=== PATIENT | male | born 1945 | race Caucasian/White ===

== ENCOUNTER 2017-07-21 20:40 | Inpatient (IN) | payer OTHER ==
--- NOTE | 2017-07-21 20:48 | EDPHY ---
H & P Stated Complaint: +SOB HPI/ROS: HPI CHIEF COMPLAINT: Shortness of breath HISTORY OF PRESENT ILLNESS: Patient is a 72-year-old male, significant past medical history for decompensated heart failure, he does report to me that he injection fraction of 20% at 1 point, additionally has a history AFib, he current not take any daily medications. He ripped port me that he stopped taking his Coreg, Lasix, lisinopril as he did not like the side effects. He states after stopping the he felt well for 3 months but then over the past few weeks she has had progressively worsening shortness of breath with dyspnea on exertion, PND, and tachycardia. He denies any chest pain. He comes to the emergency room tonight as he has been feeling more short of breath day and woke up numerous times last night with PND. He could not go to sleep he kept waking up gasping for air. He denies any chest pain or fever. Denies productive cough. Past Medical History: Significant medical history for AFib, CHF Past Surgical History: No recent surgical history Social History: Denies daily use drugs alcohol tobacco products retired. Family History: Noncontributory ROS REVIEW OF SYSTEMS: A comprehensive 10 point review of systems is otherwise negative aside from elements mentioned in the history of present illness. Exam Constitutional appears nontoxic triage nursing summary reviewed, vital signs reviewed, awake/alert. Noted be tachycardic at triage Eyes normal conjunctivae and sclera, EOMI, PERRLA. HENT normal inspection, atraumatic, moist mucus membranes, no epistaxis, neck supple/ no meningismus, no raccoon eyes. Respiratory crackles bilaterally. Cardiovascular tachycardia, regular rhythm, no murmur, no edema, distal pulses normal. Gastrointestinal soft, non-tender, no rebound, no guarding, normal bowel sounds, no distension, no pulsatile mass. Genitourinary no CVA tenderness. Musculoskeletal no midline vertebral tenderness, full range of motion, no calf swelling, no tenderness of extremities, no meningismus, good pulses, neurovascularly intact. Skin pink, warm, & dry, no rash, skin atraumatic. Neurologic awake, alert and oriented x 3, AAOx3, moves all 4 extremities equally, motor intact, sensory intact, CN II-XII intact, normal cerebellar, normal vision, normal speech. Psychiatric normal mood/affect. Heme/Lymph/Immune no lymphadenopathy. Differential Diagnosis: Includes but is not limited to in a particular order decompensated heart failure, pneumonia, CHF, pleurisy, pneumothorax, PE Medical Decision Making: Plan for this patient will workup for decompensated heart failure. Hold IV fluids, full surveillance system monitor, chest x-ray, electrolytes , troponin, CHF, EKG Re-evaluation: EKG interpretation by me on record in [employer] system. Impression time of EKG 2106, sinus tachycardia rate of 110 LVH present. I do not appreciate acute ischemia. Q-waves noted in inferior leads to 3 AVF. ED x-ray chest one-view: This shows cardiomegaly with bilateral pulmonary edema. Significant for decompensated heart failure. 2139: Ordered this patient IV Lasix. 40 mg. Source: Patient, Family - Personal History Current Tetanus/Diphtheria Vaccine: Unsure Current Tetanus Diphtheria and Acellular Pertussis (TDAP): Unsure - Medical/Surgical History Hx Asthma: No Hx Chronic Respiratory Disease: No Hx Diabetes: No Hx Cardiac Disease: Yes Hx Renal Disease: No Hx Cirrhosis: No Hx Alcoholism: No Hx HIV/AIDS: No Hx Splenectomy or Spleen Trauma: No Other PMH: A-FIB WITH SPONTANEOUS CONVERSION, aDVANCED CHF - Social History Smoking Status: Never smoked Constitutional: Initial Vital Signs Temperature (C) 36.4 C 07/21/17 20:42 Heart Rate 116 H 07/21/17 20:42 Respiratory Rate 20 07/21/17 20:42 Blood Pressure 133/92 H 07/21/17 20:42 O2 Sat (%) 93 07/21/17 20:42 O2 Delivery Mode Room Air Allergies/Adverse Reactions: No Known Allergies Allergy (Unverified 02/24/16 11:17) Home Medications: Medication Instructions Recorded Carvedilol [Coreg (*)] 25 mg PO BIDMEAL 02/24/16 Lisinopril [Zestril 5 mg (*)] 5 mg PO DAILY 02/24/16 Furosemide [Lasix 20 MG (*)] 20 mg PO Q3D 07/21/17 Medical Decision Making - Data Points Laboratory Results: Laboratory Results 07/21/17 21:20 07/21/17 21:20 Medications Given: Digoxin (Lanoxin) 125 mcg PO DAILY10 [facility] Stop: 01/19/18 09:59 Last Admin: 07/23/17 10:05 Dose: 125 mcg Heparin Sodium (Porcine) (Heparin Sc Injection) 5,000 unit SC Q8 [facility] Stop: 01/18/18 05:59 Last Admin: 07/23/17 21:45 Dose: 5,000 unit Temazepam (Restoril) 15 mg PO HS PRN PRN Reason: Sleep/Insomnia Stop: 01/19/18 09:19 Last Admin: 07/23/17 21:45 Dose: 15 mg Discontinued Medications Carvedilol (Coreg) 3.125 mg PO BIDMEAL [facility] Stop: 01/18/18 07:59 Last Admin: 07/22/17 11:14 Dose: 3.125 mg Furosemide (Lasix Injection) 40 mg IVP [facility] Stop: 07/21/17 21:41 Last Admin: 07/21/17 21:46 Dose: 40 mg Furosemide (Lasix) 40 mg PO DAILY [facility] Stop: 01/18/18 08:59 Last Admin: 07/22/17 10:47 Dose: Not Given Lisinopril (Zestril) 2.5 mg PO DAILY [facility] Stop: 01/18/18 08:59 Last Admin: 07/22/17 10:47 Dose: Not Given Metoprolol Succinate (Toprol Xl) 12.5 mg PO HS [facility] Stop: 01/18/18 20:59 Last Admin: 07/22/17 21:03 Dose: Not Given Sacubitril/Valsartan (Entresto 24 Mg/26 Mg) 1 ea PO BID [facility] Stop: 01/18/18 10:14 Last Admin: 07/23/17 08:29 Dose: Not Given Departure - Departure Disposition: [facility] Acute Clinical Impression: Acute decompensated heart failure Condition: Fair
--- NOTE | 2017-07-21 21:09 | CPEKG ---
Heart Rate: 110 RR Interval: 545 P-R Interval: 148 QRSD Interval: 100 QT Interval: 356 QTC Interval: 482 P Watkins: 56 QRS Watkins: -59 T Wave Watkins: 81 EKG Severity - ABNORMAL ECG - EKG Impression: SINUS TACHYCARDIA EKG Impression: PROBABLE LEFT ATRIAL ABNORMALITY EKG Impression: LEFT ANTERIOR FASCICULAR BLOCK EKG Impression: LVH WITH SECONDARY REPOLARIZATION ABNORMALITY EKG Impression: BORDERLINE PROLONGED QT INTERVAL Electronically Signed By: Romain Jackson 21-Jul-2017 22:19:23
[2017-07-21 21:29] LABS: PLATELET COUNT 213 10^3/uL (150-400)
[2017-07-21] MEDS ORDERED: FUROSEMIDE 40 MG/4 ML VIAL IVP ONE (21:40)
[2017-07-21 21:41] LABS: PROTIME(PATIENT) 13.4 SEC (12.0-15.0)
[2017-07-21] MEDS ORDERED: ACETAMINOPHEN 325 MG TAB PO PRN (22:12)
[2017-07-21] MEDS ORDERED: ONDANSETRON 4 MG/2 ML VIAL IVP PRN (22:12)
[2017-07-21] MEDS ORDERED: ONDANSETRON DISINTEGRATING 4 MG TAB PO PRN (22:12)
[2017-07-21 22:15] LABS: CREATINE KINASE 77 IU/L (0-224)
--- NOTE | 2017-07-21 23:36 | PDGENHP ---
History and Physical - Chief Complaint SHELTON - History of Present Illness 72 yo M w/ systolic heart failure presents with dyspnea on exertion and PND. Patient was first diagnosed with heart failure about 2 years ago following a viral illness. He has never had ischemic heart disease. He reports his last ejection fraction was 28% on a TTE performed in April of 2017. He was previously on Lasix (alternating 20 and 40 mg qOD), Lisinopril 5 mg qD, and Coreg 25 mg BID. He is followed by Dr. Prieto. He states that he had been feeling unwell due to the medication so he stopped taking all of it about 3 months ago. Over the last 6 weeks he was developed progressive SHELTON and PND. He had experienced minimal weight gain and has no lower extremity edema. He denies chest pain or any recent illness. History Information - Allergies/Home Medication List Allergies/Adverse Reactions: No Known Allergies Allergy (Unverified 02/24/16 11:17) Home Medications: Carvedilol [Coreg (*)] 25 mg PO BIDMEAL 02/24/16 [Last Taken 3 Months Ago ~04/21] Lisinopril [Zestril 5 mg (*)] 5 mg PO DAILY 02/24/16 [Last Taken 3 Months Ago ~ 04/21/17] Furosemide [Lasix 20 MG (*)] 20 mg PO Q3D 07/21/17 [Last Taken 2 Weeks Ago ~03/16] I have personally reviewed and updated: family history, medical history - Past Medical History CHF - Surgical History Reports: no pertinent surgical hx - Family History Positive for: CAD - Social History Smoking Status: Never smoked Review of Systems Review of Systems: ROS: 10pt was reviewed & negative except for what was stated in HPI & below Physical Exam Physical Exam: Temp Pulse Resp BP Pulse Ox 36.5 C 105 H 19 116/83 H 97 07/21/17 23:22 07/21/17 23:22 07/21/17 23:22 07/21/17 23:22 07/21/17 23:22 Constitutional: no apparent distress, not in pain Eyes: PERRL, EOMI Ears, Nose, Mouth, Throat: moist mucous membranes, no oral mucosal ulcers Cardiovascular: regular rate and rhythym, no murmur, rub, or gallop, JVD (2 cm above clavicle at 45 degress), No edema Respiratory: no respiratory distress, inspiratory crackles (Bilateral to mid- lungs) Gastrointestinal: normoactive bowel sounds, soft, non-tender abdomen Skin: warm, normal color Musculoskeletal: full muscle strength, no muscle tenderness Neurologic: AAOx3, CN II-XII Intact Psychiatric: interacting appropriately, not anxious Lab Data & Imaging Review 07/21/17 21:20 07/21/17 21:20 WBC 5.77 10^3/uL (3.80-9.50) 07/21/17 21:20 RBC 5.09 10^6/uL (4.40-6.38) 07/21/17 21:20 Hgb 15.6 g/dL (13.7-17.5) 07/21/17 21:20 Hct 45.5 % (40.0-51.0) 07/21/17 21:20 MCV 89.4 fL (81.5-99.8) 07/21/17 21:20 MCH 30.6 pg (27.9-34.1) 07/21/17 21:20 MCHC 34.3 g/dL (32.4-36.7) 07/21/17 21:20 RDW 14.3 % (11.5-15.2) 07/21/17 21:20 Plt Count 213 10^3/uL (150-400) 07/21/17 21:20 MPV 10.9 fL (8.7-11.7) 07/21/17 21:20 Neut % (Auto) 58.2 % (39.3-74.2) 07/21/17 21:20 Lymph % (Auto) 23.6 % (15.0-45.0) 07/21/17 21:20 Tompkins % (Auto) 11.4 % (4.5-13.0) 07/21/17 21:20 Eos % (Auto) 5.2 % (0.6-7.6) 07/21/17 21:20 Baso % (Auto) 1.4 % (0.3-1.7) 07/21/17 21:20 Nucleat RBC Rel Count 0.0 % (0.0-0.2) 07/21/17 21:20 Absolute Neuts (auto) 3.36 10^3/uL (1.70-6.50) 07/21/17 21:20 Absolute Lymphs (auto) 1.36 10^3/uL (1.00-3.00) 07/21/17 21:20 Absolute Monos (auto) 0.66 10^3/uL (0.30-0.80) 07/21/17 21:20 Absolute Eos (auto) 0.30 10^3/uL (0.03-0.40) 07/21/17 21:20 Absolute Basos (auto) 0.08 10^3/uL (0.02-0.10) 07/21/17 21:20 Absolute Nucleated RBC 0.00 10^3/uL (0-0.01) 07/21/17 21:20 Immature Gran % 0.2 % (0.0-1.1) 07/21/17 21:20 Immature Gran # 0.01 10^3/uL (0.00-0.10) 07/21/17 21:20 PT 13.4 SEC (12.0-15.0) 07/21/17 21:20 INR 1.00 (0.83-1.16) 07/21/17 21:20 APTT 23.9 SEC (23.0-38.0) 07/21/17 21:20 Sodium 145 mEq/L (134-144) H 07/21/17 21:20 Potassium 4.6 mEq/L (3.5-5.2) 07/21/17 21:20 Chloride 112 mEq/L (97-110) H 07/21/17 21:20 Carbon Dioxide 19 mEq/l (22-31) L 07/21/17 21:20 Anion Gap 14 mEq/L (8-16) 07/21/17 21:20 BUN 26 mg/dL (7-23) H 07/21/17 21:20 Creatinine 1.1 mg/dL (0.7-1.3) 07/21/17 21:20 Estimated GFR > 60 07/21/17 21:20 Glucose 97 mg/dL (70-100) 07/21/17 21:20 Calcium 9.8 mg/dL (8.5-10.4) 07/21/17 21:20 Magnesium 2.1 mg/dL (1.6-2.3) 07/21/17 21:20 Total Bilirubin 0.7 mg/dL (0.1-1.4) 07/21/17 21:20 Conjugated Bilirubin 0.4 mg/dL (0.0-0.5) 07/21/17 21:20 Unconjugated Bilirubin 0.3 mg/dL (0.0-1.1) 07/21/17 21:20 AST 60 IU/L (17-59) H 07/21/17 21:20 ALT 137 IU/L (21-72) H 07/21/17 21:20 Alkaline Phosphatase 128 IU/L (38-126) H 07/21/17 21:20 Creatine Kinase 77 IU/L (0-224) 07/21/17 21:20 CK-MB (CK-2) Fraction 2.36 ng/mL (0.00-3.19) 07/21/17 21:20 Troponin I 0.022 ng/mL (0.000-0.034) 07/21/17 21:20 NT-Pro-B Natriuret Pep 7560 pg/mL (0-125) H 07/21/17 21:20 Total Protein 6.8 g/dL (6.3-8.2) 07/21/17 21:20 Albumin 4.1 g/dL (3.5-5.0) 07/21/17 21:20 Visualized and Interpreted Chest x-ray results: Yes Chest X-Ray results: other (Vascular congestion, mild pulmonary edema) Visualized and Interpreted EKG results: Yes EKG Interpretation: Positive for: other (Sinus tachyardia, LAFB) Assessment & Plan Assessment: 72 yo M w/ hx of systolic CHF 2/2 NICM presents with subacute decompensation in the setting of medication noncompliance. Plan: 1. Chronic systolic heart failure with acute decompensation - NICM 2/2 likely viral illness 2 years ago. He reports his last ejection fraction was 28% on a TTE performed in April of 2017. He was previously on Lasix (alternating 20 and 40 mg qOD), Lisinopril 5 mg qD, and Coreg 25 mg BID but stopped all medications about 3 months ago. He is followed by Dr. Prieto. As a result he developed progressive SHELTON and PND over the last few weeks. Work-up this admission notable for elevated BNP and pulmonary edema with minimal signs of right sided dysfunction. He denies chest pain or recent illness; troponin negative on admission. - S/p Lasix 40 mg IV x1 in ED with good output - Will restart Lasix 40 mg PO qD - Will also restart Coreg 3.125 mg BID and Lisinopril 2.5 mg qD for now noting 3 months without medications and ongoing exacerbation - Obtain TTE - Will consult cardiology for further management Diet - Cardiac Code - Full Ppx - [facility] Dispo - Admit to inpatient status noting need for monitoring and medication titration.
--- NOTE | 2017-07-22 00:22 | PDMN ---
Medical Necessity Medical necessity: C/M review: est. > 2 MN LOS for acute decompensated systolic heart failure, dyspnea on exertion, PND requiring IV Lasix x 1 in ED, planned Cardiology consult, echocardiogram, cardiac monitoring, medication titration, comorbid medication noncompliance, chronic systolic heart failure, nonischemic cardiomyopathy per H/P.
[2017-07-22 04:32] LABS: PLATELET COUNT 216 10^3/uL (150-400)
[2017-07-22] MEDS: HEPARIN 5,000 UNIT/0.5 ML SYR SC SCH ×3 (06:53→22:28)
[2017-07-22] MEDS ORDERED: CARVEDILOL 3.125 MG TAB PO SCH (08:00)
[2017-07-22] MEDS ORDERED: FUROSEMIDE 40 MG TAB PO SCH (09:00)
[2017-07-22] MEDS ORDERED: LISINOPRIL 2.5 MG TAB PO SCH (09:00)
[2017-07-22] MEDS ORDERED: FUROSEMIDE 40 MG/4 ML VIAL IVP SCH (09:00)
--- NOTE | 2017-07-22 11:19 | HOSPPROG ---
Hospitalist Progress Note Assessment/Plan: 72 yo M w/ hx of systolic CHF 2/2 NICM presents with subacute decompensation in the setting of medication noncompliance. 1. Chronic systolic heart failure with acute decompensation - NICM 2/2 likely viral illness 2 years ago. He reports his last ejection fraction was 28% on a TTE performed in April of 2017. He was previously on Lasix (alternating 20 and 40 mg qOD), Lisinopril 5 mg qD, and Coreg 25 mg BID but stopped all medications about 3 months ago. He is followed by Dr. Prieto. As a result he developed progressive SHELTON and PND over the last few weeks. Work-up this admission notable for elevated BNP and pulmonary edema with minimal signs of right sided dysfunction. He denies chest pain or recent illness; troponin negative on admission. - Entresto per Cards - Diuretics per cards, holding currently as Entresto just started - Coreg 3.125mg PO BID - Stopped Lisinopril - F/u TTE 2. Transaminitis: - resolved - negative abd ultrasound - not symptomatic Diet - Cardiac Code - Full Ppx - [facility] Dispo - cont inpatient Subjective: Still feels SOB. Started on Entresto this morning. TTE pending. No CP. No leg swelling. Does not want an EVA-I. Objective: Vital Signs Temp Pulse Resp BP Pulse Ox 36.9 C 103 H 16 105/78 96 07/22/17 11:07 07/22/17 11:14 07/22/17 11:07 07/22/17 11:07 07/22/17 11:07 Laboratory Results 07/22/17 03:45 07/22/17 03:45 07/21/17 07/22/17 07/23/17 05:59 05:59 05:59 Intake Total 400 Output Total 1200 Balance -800 PT 13.4 SEC (12.0-15.0) 07/21/17 21:20 INR 1.00 (0.83-1.16) 07/21/17 21:20 - Physical Exam Constitutional: no apparent distress, appears nourished Eyes: PERRL, EOMI Ears, Nose, Mouth, Throat: moist mucous membranes, hearing normal Cardiovascular: regular rate and rhythym, edema (trace) Respiratory: no respiratory distress, inspiratory crackles Gastrointestinal: normoactive bowel sounds, soft, non-tender abdomen Genitourinary: no bladder fullness Skin: warm, normal color Neurologic: AAOx3 Psychiatric: interacting appropriately, not anxious, not encephalopathic Lymph, Heme, Immunologic: No petechiae ICD10 Worksheet Patient Problems: Problems Problem Status Onset Acute decompensated heart failure Acute
[2017-07-22] MEDS: SACUBITRIL/VALSARTAN 24/26MG 1 EA TAB PO SCH ×2 (11:21→21:03)
--- NOTE | 2017-07-22 11:44 | ECHO ---
[email or web address] [address] [address] Main: [phone] Fax: Transthoracic Echocardiogram Name: ZULEMA TOLEDO MR#: [id number] Study Date: 07/22/2017 Study Time: 09:46 AM Date of : 1945 Age: 72 year(s) Height: 188 cm (74 in.) Weight: 65.77 kg (145 lb.) BSA: 1.9 m2 Gender: Male Examination: Echo Indication: CHF exacerbation Image Quality: Adequate Contrast: Requested by: Claudio Clemons BP: 130 mmHg/99 mmHg Heart Rate: Rhythm: Sinus tachycardia Indication: CHF exacerbation Procedure Staff [employer] Assembler: Letty Wyatt Reading Physician: Abner Lorenzo Requesting Provider: Conclusions: Moderately to severely dilated left ventricle. Severely reduced systolic LV function. EF is 16 %. Grade 2 diastolic dysfunction (pseudonormalized LV filling pattern). Elevated left ventricular filling pressures.. Global hypokinesis. Mildly reduced RV function. The left atrium is mildly dilated. The right atrium is moderately dilated. Moderate mitral valve regurgitation is present. Moderate tricuspid regurgitation is present. The pulmonary artery pressure is moderately increased. RAP 15 mmHg. No pericardial effusion. Left side pleural effusion. Measurements: Chambers Valvular Assessment AV/MV Valvular Assessment TV/PV Normal Normal Normal Name Value Range Name Value Range Name Value Range Ao Summer (MM): 3.5 cm (2.2 cm-3.7 AV Vmax: 0.61 m/s (1 m/s-1.7 TR Vmax: 3.18 mm/s ( - ) cm) m/s) TR PGmax: 40 mmHg ( - ) IVSd (2D): 0.9 cm (0.6 cm-1.1 AV maxP mmHg ( - ) syst. PAP: 50 mmHg ( - ) cm) MV E Vmax: 0.69 m/s ( - ) PV Vmax: 0.68 m/s (0.6 m/s-0.9 LVDd (2D): 6.7 cm (4.2 cm-5.9 MV A Vmax: 0.30 m/s ( - ) m/s) cm) MV E/A: 2.30 ( - ) PV PGmax: 2 mmHg ( - ) LVDs (2D): 6.3 cm (2.1 cm-4 MV meanP mmHg ( - ) cm) MVA (Vmax): 3.3 m/s ( - ) LVPWd (2D): 0.9 cm (0.6 cm-1 cm) Patient: ZULEMA TOLEDO Study Date: 07/22/2017 Page 1 of 2 09:46 AM LVOTd 2.2 cm 2.2 cm mm LVEF (BP): 16 % (>=55 %) Continued Measurements: Chambers Valvular Assessment AV/MV Valvular Assessment TV/PV Name Value Name Value Name Value LADs Lon.2 cm MV Annulus: 3.3 cm CVP (est.): 10 mmHg LA Area: 21.8 cm2 MV DecTime: 116 m/s LA Volume: 66 ml MV VTI: 8.30 cm LA Volume Index: 34.7 ml/m2 MR Vena Contracta: 0.5 cm MR ERO: 0.270 cm2 MR PISA radius: 7 mm MR Reg. Volume: 31 ml MR Reg. Fraction: 44 % Findings: Left Ventricle: Moderately to severely dilated left ventricle. No LV hypertrophy. Severely reduced systolic LV function. EF is 16 %. Grade 2 diastolic dysfunction (pseudonormalized LV filling pattern). Elevated left ventricular filling pressures.. Global hypokinesis. Right Ventricle: Normal size right ventricle. Mildly reduced RV function. Left Atrium: The left atrium is mildly dilated. Right Atrium: The right atrium is moderately dilated. Mitral Valve: There is mild thickening of the mitral valve leaflets. Moderate mitral valve regurgitation is present. No mitral stenosis is present. Aortic Valve: There is mild thickening of the aortic cusps. Trivial to mild aortic valve regurgitation. No aortic valve stenosis is present. Tricuspid Valve: The tricuspid valve appears normal. Moderate tricuspid regurgitation is present. Right ventricular systolic pressure measures 50mmHg. The pulmonary artery pressure is moderately increased. Pulmonic Valve: The pulmonic valve is normal in appearance and function. Moderate pulmonic valve regurgitation is noted. Aorta: Normal size aortic root measuring 3.5 cm. IVC: The IVC is dilated. There is less than 50% respiratory excursion. RAP 15 mmHg. Pericardium: No pericardial effusion. Left side pleural effusion. (No Signature Object) Patient: ZULEMA TOLEDO Study Date: 07/22/2017 Page 2 of 2 09:46 AM [id number]
--- NOTE | 2017-07-22 11:44 | ASMTCMCOM ---
CM Note CM Note Notes: Pt admitted w/decompensated heart failure. He lives at home w/. No dc needs identified at this time. Discussed w/RN, Amanda, that pt will benefit from medication teaching prior to dc. CM available if any dc needs arise. Date Signed: 07/22/2017 11:44 AM Electronically Signed By:Karen Win RN
--- NOTE | 2017-07-22 12:48 | SOAPPROG ---
SOAP Progress Note Assessment/Plan: Assessment: He presents now with symptoms of dyspnea and PND associated with a slight nonproductive cough on the heels of discontinuing his medications. He has a known severe nonischemic dilated cardiomyopathy. His brain atretic peptide is markedly elevated and certainly much higher than he has had in the past. His exam is consistent with mild pulmonary edema. At the present time, the most likely etiology for his decompensation is medical noncompliance. There does not appear to be another cause. He and I spent a significant portion of the visit discussing the importance of his medications. I recommended that we get him started back on guideline directed medical therapy. He will start Entresto at the introductory dose. I will also begin him on a very low-dose of Toprol-XL which I would like him to take before bed. At least during the day today we will plan on holding off on any additional diuretic therapy until we can see his response to above change in his medications. Perhaps later today we will give him a dose of intravenous Lasix. He has basic labs scheduled for tomorrow. I anticipate a be in hospital for a couple of days while we adjust his med occasions and assess his volume status. Certainly is a candidate for and should strongly be considered for an ICD. 07/22/17 12:49 Subjective: Mr. Alvarado is a pleasant 72-year-old male followed as an outpatient by Dr. Augustin Prieto. 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 Serial echocardiography in our office has Josefa Manzanares indicated an ejection fraction in the 20-30% range with moderate left ventricular dilatation and mild aortic and mitral regurgitation. Historically, he has been treated with a combination of lisinopril, Lasix and Coreg. Typically he has been well compensated. Historically he has had some difficulty taking his medications as prescribed. He has declined ICD therapy in the past. He states that about 3 months ago he decided to stop all of his medications. He did this because he was experiencing side effects of orthostasis, fatigue and decreased mental clarity. Off of his medications he initially felt better with an improvement in his energy level however over the last 2-3 weeks he started to feel worse. He has developed symptoms of dyspnea associated with PND without prince orthopnea. Interestingly, he has not had any weight gain and denies at lower extremity edema. He has had a slight cough when he tries to take a deep breath. Because of these symptoms he came to the emergency department and was admitted overnight. He received intravenous Lasix last night. Today he states he feels a little bit better. He has not had any chest discomfort. He notes no sputum production. He denies fever, chills and sweats. He notes no palpitations and denies episodes of dizziness or syncope. Objective: Vital Signs Temp Pulse Resp BP Pulse Ox 36.9 C 103 H 16 105/78 96 07/22/17 11:07 07/22/17 11:14 07/22/17 11:07 07/22/17 11:07 07/22/17 11:07 Laboratory Results 07/22/17 03:45 07/22/17 03:45 07/21/17 07/22/17 07/23/17 05:59 05:59 05:59 Intake Total 400 Output Total 1200 Balance -800 PT 13.4 SEC (12.0-15.0) 07/21/17 21:20 INR 1.00 (0.83-1.16) 07/21/17 21:20 Laboratory Tests 07/21/17 07/22/17 21:20 03:45 ALT 137 H 127 H Alkaline Phosphatase 128 H 115 Troponin I 0.022 NT-Pro-B Natriuret Pep 7560 H Physical Exam - Physical Exam General Appearance: thin Neck: non-tender, full range of motion Respiratory: chest non-tender, crackles (At the bases), No respiratory distress , No accessory muscle use Cardiac/Chest: regular rate, rhythm, gallop (Loud 3rd heart sound), JVD (To the mid neck at 30 degrees), systolic murmur (1/6 holosystolic murmur left sternal border), No edema Peripheral Pulses: 1+: carotid (R), carotid (L) Abdomen: non-tender, soft, No organomegaly, No pulsatile mass Male Genitalia: deferred Rectal: deferred Skin: normal color, warm/dry, No cyanosis Lymphatic: No no adenopathy Extremities: non-tender Neuro/Psych: alert, normal mood/affect, oriented x 3 ICD10 Worksheet Patient Problems: Problems Problem Status Onset Acute decompensated heart failure Acute
[2017-07-22] MEDS ORDERED: METOPROLOL SUCCINATE XR 25 MG TAB PO SCH (21:00)
[2017-07-23] MEDS: HEPARIN 5,000 UNIT/0.5 ML SYR SC SCH ×3 (07:08→21:45)
[2017-07-23] MEDS: SACUBITRIL/VALSARTAN 24/26MG 1 EA TAB PO SCH (08:29)
[2017-07-23] MEDS ORDERED: TEMAZEPAM 15 MG CAP PO PRN (09:20)
[2017-07-23] MEDS ORDERED: DIGOXIN 50 MCG/ML UDSYR PO SCH (10:00)
[2017-07-23] MEDS: DIGOXIN 125 MCG TAB PO SCH (10:05)
--- NOTE | 2017-07-23 10:19 | HOSPPROG ---
Hospitalist Progress Note Assessment/Plan: 72 yo M w/ hx of systolic CHF 2/2 NICM presents with subacute decompensation in the setting of medication noncompliance. 1. Chronic systolic heart failure with acute decompensation - NICM 2/2 likely viral illness 2 years ago. He reports his last ejection fraction was 28% on a TTE performed in April of 2017. He was previously on Lasix (alternating 20 and 40 mg qOD), Lisinopril 5 mg qD, and Coreg 25 mg BID but stopped all medications about 3 months ago. He is followed by Dr. Prieto. As a result he developed progressive SHELTON and PND over the last few weeks. Work-up this admission notable for elevated BNP and pulmonary edema with minimal signs of right sided dysfunction. He denies chest pain or recent illness; troponin negative on admission. - Entresto per Cards: He has developed hypotension and this is currently being held - Diuretics per cards, holding currently as Entresto just started - Metoprolol per cards, holding currently due to hypotension - Stopped Lisinopril 2. Transaminitis: - resolved - negative abd ultrasound - not symptomatic 3. Hypotension: likely due to Entresto Diet - Cardiac Code - Full Ppx - SQH Dispo - cont inpatient Plan: -hold meds untils seen by Cards -If BP holds, could benefit from diuresis -PT: ill order today -monitor overnigh -plan discussed with pt, Cardiology, and nurse Subjective: Breathing gaines feels better. BP is low. No CP, no palpitations. Meds held this morning Objective: Vital Signs Temp Pulse Resp BP Pulse Ox 36.6 C 87 14 89/56 L 96 07/23/17 08:00 07/23/17 10:05 07/23/17 08:00 07/23/17 08:00 07/23/17 08:00 Laboratory Results 07/22/17 03:45 07/23/17 04:35 07/22/17 07/23/17 07/24/17 05:59 05:59 05:59 Intake Total 400 750 Output Total 1200 586 Balance -800 164 PT 13.4 SEC (12.0-15.0) 07/21/17 21:20 INR 1.00 (0.83-1.16) 07/21/17 21:20 - Physical Exam Constitutional: no apparent distress Eyes: PERRL Ears, Nose, Mouth, Throat: moist mucous membranes, hearing normal Cardiovascular: regular rate and rhythym, No edema Respiratory: no respiratory distress, inspiratory crackles Gastrointestinal: normoactive bowel sounds, soft, non-tender abdomen Skin: warm Neurologic: AAOx3 Psychiatric: interacting appropriately, not anxious, not encephalopathic Lymph, Heme, Immunologic: No petechiae ICD10 Worksheet Patient Problems: Problems Problem Status Onset Acute decompensated heart failure Acute
--- NOTE | 2017-07-23 10:32 | SOAPPROG ---
SOAP Progress Note Assessment/Plan: Assessment: He presents now with symptoms of dyspnea and PND associated with a slight nonproductive cough on the heels of discontinuing his medications. He has a known severe nonischemic dilated cardiomyopathy. His brain atretic peptide is markedly elevated and certainly much higher than he has had in the past. His exam is consistent with mild pulmonary edema. At the present time, the most likely etiology for his decompensation is medical noncompliance. There does not appear to be another cause. He and I spent a significant portion of the visit discussing the importance of his medications. I recommended that we get him started back on guideline directed medical therapy. He will start Entresto at the introductory dose. I will also begin him on a very low-dose of Toprol-XL which I would like him to take before bed. At least during the day today we will plan on holding off on any additional diuretic therapy until we can see his response to above change in his medications. Perhaps later today we will give him a dose of intravenous Lasix. He has basic labs scheduled for tomorrow. I anticipate a be in hospital for a couple of days while we adjust his med occasions and assess his volume status. Certainly is a candidate for and should strongly be considered for an ICD. 07/22/17 12:49 Unfortunately was not able to tolerate the a Entresto. As result this medication was discontinued. Additionally, he did not receive Toprol last night. Today he appears to be well compensated although continues to be manifesting hypotension. At this point I do not think that we will reinstitute Entresto. I would like to give him a period of time for this medication to wash out. I started him on digoxin 0.125 mg today. I will give him any additional diuretics or vasodilators. I will plan to reassess him in the morning. If he is doing well at that time, we can start a low-dose of Toprol. At that point I think he can be discharged and have further up titration of his medications as an outpatient. His overall prognosis is extremely poor at this point. He may be approaching a point where we need to consider referral to a center where he might be considered for more advanced heart failure treatments such as a destination ventricular assist device or consideration of cardiac transplant. Additionally, we discussed ICD therapy. He appears to be open to this option. That discussion can be continued as an outpatient with his primary woven label designer Dr. Mustafa. 07/23/17 10:29 Subjective: He received a dose of Entresto yesterday. Unfortunately, following the dose of Entresto he did developed transient hypotension. Blood pressures were in the 70s. Despite this, he feels well today. He currently is not experiencing symptoms of dyspnea. He continues to have insomnia without prince PND. He appears to be very anxious regarding his cardiac condition. Objective: Vital Signs Temp Pulse Resp BP Pulse Ox 36.6 C 87 14 89/56 L 96 07/23/17 08:00 07/23/17 10:05 07/23/17 08:00 07/23/17 08:00 07/23/17 08:00 Laboratory Results 07/22/17 03:45 07/23/17 04:35 07/22/17 07/23/17 07/24/17 05:59 05:59 05:59 Intake Total 400 750 Output Total 1200 586 Balance -800 164 PT 13.4 SEC (12.0-15.0) 07/21/17 21:20 INR 1.00 (0.83-1.16) 07/21/17 21:20 Physical Exam - Physical Exam General Appearance: no apparent distress, thin Neck: non-tender, full range of motion Respiratory: lungs clear, normal breath sounds, No respiratory distress, No accessory muscle use, No decreased breath sounds Cardiac/Chest: regular rate, rhythm, gallop (+S3) Peripheral Pulses: 2+: carotid (R), carotid (L) Abdomen: normal bowel sounds, non-tender Male Genitalia: deferred Rectal: deferred Neuro/Psych: alert, oriented x 3 ICD10 Worksheet Patient Problems: Problems Problem Status Onset Acute decompensated heart failure Acute
[2017-07-24] MEDS: HEPARIN 5,000 UNIT/0.5 ML SYR SC SCH ×3 (06:58→21:35)
--- NOTE | 2017-07-24 09:18 | SOAPPROG ---
SOAP Progress Note Assessment/Plan: Assessment: 1. Nonischemic dilated cardiomyopathy. 2. Not history of noncompliance. Procedures during this hospitalization: Echocardiogram 07/22/2017. Reviewed personally. Impression: Day 2. Status post admission for decompensated heart failure secondary to noncompliance. He is improving slowly. Continues to have orthopnea at night. Continues with dry cough. Examination continues to show decreased breath sounds at the bases with rales. Continue low-dose beta-brianna. Gentle diuresis. Discussed at length need for ICD. 07/24/17 09:15 Subjective: Overnight continues to have significant orthopnea. Continues to have significant weakness. Occasional episodes of dizziness. Denies chest pain, syncope, near syncope. No palpitations. Discussed at length with his need for medications and possible need for ICD. He has goals of longevity. Objective: Medications Generic Name Dose Route Start Last Admin Trade Name Freq PRN Reason Stop Dose Admin Digoxin 125 mcg 07/23/17 10:00 07/23/17 10:05 Lanoxin PO 01/19/18 09:59 125 mcg DAILY10 [facility] Vital Signs Temp Pulse Resp BP Pulse Ox 36.6 C 92 14 102/62 94 07/24/17 08:00 07/24/17 08:00 07/24/17 08:00 07/24/17 08:00 07/24/17 08:00 Laboratory Results 07/22/17 03:45 07/24/17 03:21 07/23/17 07/24/17 07/25/17 05:59 05:59 05:59 Intake Total 750 790 Output Total 586 200 Balance 164 590 PT 13.4 SEC (12.0-15.0) 07/21/17 21:20 INR 1.00 (0.83-1.16) 07/21/17 21:20 Physical Exam - Physical Exam General Appearance: alert, no apparent distress EENT: PERRL/EOMI Neck: non-tender Respiratory: decreased breath sounds, rales Cardiac/Chest: normal peripheral pulses, regular rate, rhythm, gallop, JVD Abdomen: normal bowel sounds, non-tender, soft Back: Normal inspection Skin: normal color, warm/dry Lymphatic: no adenopathy Extremities: normal range of motion, No pedal edema, No calf tenderness Neuro/Psych: no motor/sensory deficits, alert, No facial droop ICD10 Worksheet Patient Problems: Problems Problem Status Onset Acute decompensated heart failure Acute Past Medical History - Personal History Current Tetanus/Diphtheria Vaccine: Unsure Current Tetanus Diphtheria and Acellular Pertussis (TDAP): Unsure - Medical/Surgical History Hx Asthma: No Hx Chronic Respiratory Disease: No Hx Cardiac Disease: Yes Hx Diabetes: No Hx Renal Disease: No Hx Alcoholism: No Hx Cirrhosis: No Hx HIV/AIDS: No Hx Splenectomy or Spleen Trauma: No Other PMH: A-FIB WITH SPONTANEOUS CONVERSION, aDVANCED CHF - Social History Smoking Status: Never smoked Review of Systems - Review of Systems Constitutional: weakness, weight loss. denies: chills, fever EENTM: no symptoms reported Respiratory: cough, orthopnea, shortness of breath. denies: stridor, wheezing Cardiac: lightheadedness. denies: chest pain, irregular heart rate, palpitations Gastrointestinal/Abdominal: no symptoms reported Genitourinary: no symptoms Musculoskelatal: no symptoms Skin: no symptoms Neurological: no symptoms, anxiety Hematologic/Lymphatic: no symptoms reported Immunologic/allergic: no symptoms reported
[2017-07-24] MEDS: DIGOXIN 125 MCG TAB PO SCH (09:40)
[2017-07-24] MEDS: FUROSEMIDE 20 MG TAB PO SCH (14:59)
[2017-07-24] MEDS: CARVEDILOL 3.125 MG TAB PO SCH (17:47)
--- NOTE | 2017-07-24 19:14 | HOSPPROG ---
Hospitalist Progress Note Assessment/Plan: -systolic CHF, acute -intolerence of entresto with hypotension -passive hepatic congestion -chronic kidney disease -agree with discontinue of entresto -agree with ongoing gentle diuresis, though he does not appear to have a lot more fluid to remove -discussed sleeping with extra pillows still with dyspnea and orthopnea, the orthopnea a bit better but more persistant daytime dyspnea no cough or fever or CP Lab data: creat stable, bun stable at 30 Objective: Vital Signs Temp Pulse Resp BP Pulse Ox 36.6 C 93 15 108/70 92 07/24/17 16:00 07/24/17 17:47 07/24/17 16:00 07/24/17 17:47 07/24/17 16:00 Laboratory Results 07/22/17 03:45 07/24/17 03:21 07/23/17 07/24/17 07/25/17 06:59 06:59 06:59 Intake Total 142 578 2841 Output Total 586 200 845 Balance 164 590 925 PT 13.4 SEC (12.0-15.0) 07/21/17 21:20 INR 1.00 (0.83-1.16) 07/21/17 21:20 ICD10 Worksheet Patient Problems: Problems Problem Status Onset Acute decompensated heart failure Acute
[2017-07-25] MEDS: HEPARIN 5,000 UNIT/0.5 ML SYR SC SCH ×3 (06:12→21:47)
[2017-07-25] MEDS: CARVEDILOL 3.125 MG TAB PO SCH ×2 (09:03→18:20)
[2017-07-25] MEDS: DIGOXIN 125 MCG TAB PO SCH (09:03)
[2017-07-25] MEDS ORDERED: FUROSEMIDE 40 MG/4 ML VIAL IVP ONE (09:35)
--- NOTE | 2017-07-25 09:44 | SOAPPROG ---
SOAP Progress Note Assessment/Plan: Assessment: He presents now with symptoms of dyspnea and PND associated with a slight nonproductive cough on the heels of discontinuing his medications. He has a known severe nonischemic dilated cardiomyopathy. His brain atretic peptide is markedly elevated and certainly much higher than he has had in the past. His exam is consistent with mild pulmonary edema. At the present time, the most likely etiology for his decompensation is medical noncompliance. There does not appear to be another cause. He and I spent a significant portion of the visit discussing the importance of his medications. I recommended that we get him started back on guideline directed medical therapy. He will start Entresto at the introductory dose. I will also begin him on a very low-dose of Toprol-XL which I would like him to take before bed. At least during the day today we will plan on holding off on any additional diuretic therapy until we can see his response to above change in his medications. Perhaps later today we will give him a dose of intravenous Lasix. He has basic labs scheduled for tomorrow. I anticipate a be in hospital for a couple of days while we adjust his med occasions and assess his volume status. Certainly is a candidate for and should strongly be considered for an ICD. 07/22/17 12:49 Unfortunately was not able to tolerate the a Entresto. As result this medication was discontinued. Additionally, he did not receive Toprol last night. Today he appears to be well compensated although continues to be manifesting hypotension. At this point I do not think that we will reinstitute Entresto. I would like to give him a period of time for this medication to wash out. I started him on digoxin 0.125 mg today. I will give him any additional diuretics or vasodilators. I will plan to reassess him in the morning. If he is doing well at that time, we can start a low-dose of Toprol. At that point I think he can be discharged and have further up titration of his medications as an outpatient. His overall prognosis is extremely poor at this point. He may be approaching a point where we need to consider referral to a center where he might be considered for more advanced heart failure treatments such as a destination ventricular assist device or consideration of cardiac transplant. Additionally, we discussed ICD therapy. He appears to be open to this option. That discussion can be continued as an outpatient with his primary dinkey engine operator Dr. Mustafa. 07/23/17 10:29 His overall clinical status is improved. He continues to have nocturnal dyspnea which may be a component of orthopnea or possibly anxiety. His fluid balance has been positive for the last several days ago associated with weight gain. By examination he has slight rales and decreased breath sounds both bases. He continues to experience episodes of PVCs and nonsustained VT on telemetry. Several discussions have been had with him by myself and Dr. Arenas regarding utility of ICD implantation. At the present time he is amenable to this procedure. I spoke to the hospitalist Dr. Marie regarding the case as well. A chest x-ray and brain atretic peptide a been ordered. I have given him 40 mg of IV Lasix. I have also started him on a low-dose of Aldactone. We will plan to follow his electrolytes closely. We will schedule him for ICD implantation prior to discharge from the hospital. His other medications will be continued. 07/25/17 09:41 Subjective: He states he is feeling better today. He has very minimal exertional dyspnea. He does, however, continued to experience symptoms of orthopnea. He has had positive fluid balance noted on eyes and nose for the last several days. On telemetry he has been in sinus rhythm with occasional episodes of ventricular ectopy and short salvos of nonsustained VT. Objective: Vital Signs Temp Pulse Resp BP Pulse Ox 37.5 C 101 H 18 99/66 L 94 07/25/17 08:00 07/25/17 08:00 07/25/17 08:00 07/25/17 08:00 07/25/17 08:00 Laboratory Results 07/22/17 03:45 07/25/17 03:35 07/24/17 07/25/17 07/26/17 05:59 05:59 05:59 Intake Total 790 2170 Output Total 200 1445 Balance 590 725 PT 13.4 SEC (12.0-15.0) 07/21/17 21:20 INR 1.00 (0.83-1.16) 07/21/17 21:20 Physical Exam - Physical Exam General Appearance: thin Neck: non-tender, full range of motion Respiratory: decreased breath sounds (At the bases), crackles (At the base) Cardiac/Chest: regular rate, rhythm, gallop (Positive S3), No edema, No JVD Peripheral Pulses: 1+: carotid (R), carotid (L) Abdomen: non-tender, soft, No organomegaly Male Genitalia: deferred Rectal: deferred Neuro/Psych: alert, oriented x 3 ICD10 Worksheet Patient Problems: Problems Problem Status Onset Acute decompensated heart failure Acute
[2017-07-25] MEDS: SPIRONOLACTONE 25 MG TAB PO SCH (10:07)
--- NOTE | 2017-07-25 10:31 | HOSPPROG ---
Hospitalist Progress Note Assessment/Plan: DIAGNOSES: -systolic CHF, acute -intolerence of entresto with hypotension -passive hepatic congestion -chronic kidney disease -? Anxiety disorder Overall the patient's progress is hard to read. Symptomatic we he still complains of a lot of orthopnea and difficulty breathing at night, although it sounds like there may be a significant anxiety component to this. He is actually feeling better with his breathing sitting in a chair today than yesterday. He seems to notice urine output with Lasix, however looking at the last 4 days he has gained weight each day and had a positive fluid balance measured by the nurses. Total weight gain is significant over the last few days , and this would be a very concerning trend if it continued at home. It does not appear as if the current diuretic dose is likely to be sufficient if our goal is to hold his weight is steady and keep him from coming back for more hospitalization. It is notable however that his BNP did drop significantly from the time of admission to the most recent check a couple days ago. That may be left over from the initial IV Lasix he got in the ER, and I would wonder if that number is creeping back up. We still have difficulty with lower blood pressures even on a dramatically lower dose of Coreg and off the entresto. I reviewed all this today with Dr. Barrientos. I agree that at this point we are probably approaching and may be arrived at the point where some mechanical assistance for his heart failure is going to become necessary in order to keep him safe with good blood pressure and keep him out of the hospital from a respiratory and edema standpoint. It may be that some type of anti anxiety or similar therapy may be useful for his nocturnal symptoms, but we would have to contend with potential side effects of such treatment as well. I wonder if an antidepressant medication may be of some benefit if this is a persisting symptom. PLANS: -agree with staying off entresto -will get a repeat BNP and chest x-ray this morning in order to further assess fluid balance and progress treating his heart failure -I reviewed his situation, and assessment and plans in detail this morning with Dr. Barrientos and will review with him again after we have the BNP and chest x-ray SUBJECTIVE: still with dyspnea and orthopnea, was bad last night Actually today stat CT is coughing more, no chest pain or fever, no URI symptoms otherwise OBJECTIVE Vitals reviewed: Lowest systolic blood pressure 94 this morning currently 106, pulse has been up over 100 on occasion, no fever House Registry Rn, my review: Sinus I&O: He had some initial diuresis with a large dose of IV Lasix in the ER, however since then each day he has gained weight and had a positive fluid balance and appears to be up nearly 4 kg during his stay Exam: alert oriented skin warm dry color ok resps not labored at rest in chair now lungs very diminished but clear BSs, would be hard to hear any rales if they were there heart regular abd soft nondistended nontender, bowel sounds present limbs warm, no edema iv site ok Laboratory data: BUN down slightly at 28 creatinine stable chemistries otherwise stable Objective: Vital Signs Temp Pulse Resp BP Pulse Ox 37.5 C 101 H 18 99/66 L 94 07/25/17 08:00 07/25/17 08:00 07/25/17 08:00 07/25/17 08:00 07/25/17 08:00 Laboratory Results 07/22/17 03:45 07/25/17 03:35 07/24/17 07/25/17 07/26/17 06:59 06:59 06:59 Intake Total 790 2170 240 Output Total 200 1445 460 Balance 590 725 -220 PT 13.4 SEC (12.0-15.0) 07/21/17 21:20 INR 1.00 (0.83-1.16) 07/21/17 21:20 - Time Spent With Patient Time Spent with Patient: greater than 35 minutes Time Spent with Patient: Greater than 35 minutes spent on this patients care, greater than 50% of time spent counseling, educating, and coordinating care regarding the above mentioned plan. ICD10 Worksheet Patient Problems: Problems Problem Status Onset Acute decompensated heart failure Acute
[2017-07-25] MEDS: FUROSEMIDE 20 MG TAB PO SCH ×2 (12:07→16:06)
--- NOTE | 2017-07-25 13:43 | ASMTCMCOM ---
CM Note CM Note Notes: Chart reviewed. Patient independent with ADLS. No needs identified, CM availble should needs change. Date Signed: 07/25/2017 01:43 PM Electronically Signed By:Sena Angeles RN
[2017-07-25 23:34] VITALS: O2SAT 98
[2017-07-26] MEDS: HEPARIN 5,000 UNIT/0.5 ML SYR SC SCH (05:52)
[2017-07-26 08:23] VITALS: RESP 17; TEMP 97.5
[2017-07-26] MEDS ORDERED: FUROSEMIDE 20 MG TAB PO SCH (08:39)
[2017-07-26] MEDS: SPIRONOLACTONE 25 MG TAB PO SCH (09:18)
[2017-07-26] MEDS: CARVEDILOL 3.125 MG TAB PO SCH (09:18)
[2017-07-26 09:21] VITALS: PULSE 91
--- NOTE | 2017-07-26 10:59 | SOAPPROG ---
SOAP Progress Note Assessment/Plan: Assessment: He presents now with symptoms of dyspnea and PND associated with a slight nonproductive cough on the heels of discontinuing his medications. He has a known severe nonischemic dilated cardiomyopathy. His brain atretic peptide is markedly elevated and certainly much higher than he has had in the past. His exam is consistent with mild pulmonary edema. At the present time, the most likely etiology for his decompensation is medical noncompliance. There does not appear to be another cause. He and I spent a significant portion of the visit discussing the importance of his medications. I recommended that we get him started back on guideline directed medical therapy. He will start Entresto at the introductory dose. I will also begin him on a very low-dose of Toprol-XL which I would like him to take before bed. At least during the day today we will plan on holding off on any additional diuretic therapy until we can see his response to above change in his medications. Perhaps later today we will give him a dose of intravenous Lasix. He has basic labs scheduled for tomorrow. I anticipate a be in hospital for a couple of days while we adjust his med occasions and assess his volume status. Certainly is a candidate for and should strongly be considered for an ICD. 07/22/17 12:49 Unfortunately was not able to tolerate the a Entresto. As result this medication was discontinued. Additionally, he did not receive Toprol last night. Today he appears to be well compensated although continues to be manifesting hypotension. At this point I do not think that we will reinstitute Entresto. I would like to give him a period of time for this medication to wash out. I started him on digoxin 0.125 mg today. I will give him any additional diuretics or vasodilators. I will plan to reassess him in the morning. If he is doing well at that time, we can start a low-dose of Toprol. At that point I think he can be discharged and have further up titration of his medications as an outpatient. His overall prognosis is extremely poor at this point. He may be approaching a point where we need to consider referral to a center where he might be considered for more advanced heart failure treatments such as a destination ventricular assist device or consideration of cardiac transplant. Additionally, we discussed ICD therapy. He appears to be open to this option. That discussion can be continued as an outpatient with his primary sanitizer Dr. Mustafa. 07/23/17 10:29 His overall clinical status is improved. He continues to have nocturnal dyspnea which may be a component of orthopnea or possibly anxiety. His fluid balance has been positive for the last several days ago associated with weight gain. By examination he has slight rales and decreased breath sounds both bases. He continues to experience episodes of PVCs and nonsustained VT on telemetry. Several discussions have been had with him by myself and Dr. Arenas regarding utility of ICD implantation. At the present time he is amenable to this procedure. I spoke to the hospitalist Dr. Marie regarding the case as well. A chest x-ray and brain atretic peptide a been ordered. I have given him 40 mg of IV Lasix. I have also started him on a low-dose of Aldactone. We will plan to follow his electrolytes closely. We will schedule him for ICD implantation prior to discharge from the hospital. His other medications will be continued. 07/25/17 09:41 Currently he appears to be doing much better. His volume status appears optimal by exam and his symptoms have improved dramatically. At this point, I think that he can be discharged. I did increase his Lasix dose up to 40 mg twice daily. He will continue on low-dose digoxin and Coreg. He has an appointment to see Dr. Augustin Prieto next week. At that time, he can be reassessed and his medications can be further titrated. He would like to continue discussions regarding an ICD. He states he does not want have that done yet as he would like to get a little stronger. Subjective: He states that he is doing very well today. He had a restful evening and slept well for the 1st time since hospitalization with no indications of orthopnea. Today he feels that his lungs are clear. He has no dyspnea with ambulation. Overnight he had excellent diuresis with a net negative of in excess of 3 L. Objective: Vital Signs Temp Pulse Resp BP Pulse Ox 36.4 C 91 17 91/60 L 98 07/26/17 08:18 07/26/17 09:18 07/26/17 08:18 07/26/17 09:18 07/26/17 08:18 Laboratory Results 07/22/17 03:45 07/26/17 03:32 07/25/17 07/26/17 07/27/17 05:59 05:59 05:59 Intake Total 2170 1220 Output Total 1445 4350 Balance 725 -3130 PT 13.4 SEC (12.0-15.0) 07/21/17 21:20 INR 1.00 (0.83-1.16) 07/21/17 21:20 Physical Exam - Physical Exam General Appearance: WD/WN, no apparent distress Respiratory: lungs clear, No crackles, No rales, No rhonchi Cardiac/Chest: regular rate, rhythm, gallop (Positive S3), No edema, No JVD Peripheral Pulses: 2+: carotid (R), carotid (L) Abdomen: non-tender, soft Male Genitalia: deferred Rectal: deferred Neuro/Psych: alert, oriented x 3 ICD10 Worksheet Patient Problems: Problems Problem Status Onset Acute decompensated heart failure Acute chronic disease mgmt/transitional care Acute
[2017-07-26] MEDS: DIGOXIN 125 MCG TAB PO SCH (11:40)
[2017-07-26 11:47] VITALS: BP 91/53
--- NOTE | 2017-07-26 15:20 | ASDISCHSUM ---
Discharge Information Plan Status:Home with No Needs Medically Cleared to Leave:07/25/2017 Discharge Date:07/26/2017 12:20 PM CM D/C Disposition: ADT D/C Disposition:Home, Routine, Self-Care Projected Discharge Date:07/26/2017 12:00 AM Transportation at D/C: Discharge Delay Reason: Follow-Up Date:07/26/2017 12:00 AM Discharge Slot: Final Diagnosis: Placement Information Patient Contact Information Contact Name:CLARI Relationship: Address:[address] Work Phone: City:[place] Alternate Phone: State/Zip Code:[place] [address] Email: Financial Information Financial Class: Primary Plan Desc:MEDICARE INPATIENT Primary Plan Number:[id number] Secondary Plan Desc: Secondary Plan Number: Assessment Information [facility] CM Progress Note CM Note CM Note Notes: Pt admitted w/decompensated heart failure. He lives at home w/. No dc needs identified at this time. Discussed w/RNAmanda, that pt will benefit from medication teaching prior to dc. CM available if any dc needs arise. Date Signed: 07/22/2017 11:44 AM Electronically Signed By:Karen Win RN [facility] CM Progress Note CM Note CM Note Notes: Chart reviewed. Patient independent with ADLS. No needs identified, CM availble should needs change. Date Signed: 07/25/2017 01:43 PM Electronically Signed By:Sena Angeles RN Intervention Information Intervention Type:*IM-Signed Date of Service:07/26/2017 11:40 AM Patient Type:Inpatient Staff Member:Lima Gusman Hours: Discipline: Severity: Comment:
--- NOTE | 2017-07-27 06:21 | GDS ---
[f rep st] DISCHARGE SUMMARY DIAGNOSES: 1. Acute systolic congestive heart failure. 2. Intolerant of Entresto with hypotension. 3. Passive hepatic congestion. 4. Chronic kidney disease. 5. Question of possible anxiety disorder. CONSULTATIONS: Dr. Ronny Barrientos of Cardiology. PROCEDURES: Echocardiogram showing ejection fraction of approximately 15% with the left ventricle an d global hypokinesis and abdominal ultrasound showing no acute hepatic or biliary abnormality. HOSPITAL COURSE: The patient is a 72-year-old man with known severe diffuse cardiomyopathy, who pres ented to the hospital with significant shortness of breath at rest and orthopnea. He was very limite d by his symptoms. He also had been recently started on Entresto and was hypotensive related to that with systolic blood pressures in the 70s. The patient was admitted to the hospital. His Entresto w as discontinued, his Coreg dose was decreased, and he was given, once his blood pressure stabilized, IV Lasix diuresis which was successful. Over time, however, the diuresis became less effective and h is breathing did not improve further until we gave larger doses of diuretic medicine. He did eventua lly respond and get back to his baseline which still involves some limitation of ambulation and other activities, but he is having less orthopnea and sleeping better at night. There was no angina and n othing else to suggest ischemia. Echocardiogram showed an ejection fraction of 15% which is similar to what he has had in recent studies. There was some passive hepatic congestion with elevated liver enzymes and this did improve with diuresis. At this time, he is stable for discharge home. He will continue on Lasix diuresis at home and Coreg dose which is decreased at 3.25 mg b.i.d. He will not take Entresto and it is felt like this will no t be useful medicine for him because of the hypotension. It was discussed with the patient and his w rupert that at some point, if we are unable to control his symptomatology with medications, he could pot entially need to consider mechanical assist device or other advanced heart failure therapies. /[id number]/MODL
== END 2017-07-26 12:20 | disposition home or self-care (01) | DRG 292 ==
LOC: OBSVTOIN 22:12 → F2W 23:13
PROVIDERS: ADMIT Student in an Organized Health Care Education/Training Program; ATTEND Internal Medicine
DX: I50.21 Acute systolic (congestive) heart failure (principal); T46.905A Adverse effect of unspecified agents primarily affecting the cardiovascular system, initial encounter; I42.0 Dilated cardiomyopathy; I95.9 Hypotension, unspecified; K76.1 Chronic passive congestion of liver; N18.9 Chronic kidney disease, unspecified; Z91.128 Patient's intentional underdosing of medication regimen for other reason; F41.9 Anxiety disorder, unspecified
CPT/HCPCS: 96374; J1940

== ENCOUNTER → 2017-08-03 | Outpatient (CLI) | payer OTHER | LOC: BHFA 09:15 | PROVIDERS: ATTEND Internal Medicine Cardiovascular Disease | DX: I50.22 Chronic systolic (congestive) heart failure (principal); R53.83 Other fatigue; R06.02 Shortness of breath; Z91.19 Patient's noncompliance with other medical treatment and regimen ==

== ENCOUNTER → 2017-08-14 | Outpatient (CLI) | payer OTHER | LOC: BHFA 10:30 | PROVIDERS: ATTEND Internal Medicine Cardiovascular Disease | DX: R06.02 Shortness of breath (principal) ==

== ENCOUNTER 2017-09-12 08:11 | Day surgery (SDC) | payer OTHER ==
[2017-09-12] MEDS ORDERED: DIAZEPAM 5 MG TAB PO ONE (08:13)
[2017-09-12] MEDS ORDERED: TEMAZEPAM 15 MG CAP PO PRN (08:13)
[2017-09-12] MEDS ORDERED: diphenhydrAMINE 25 MG CAP PO ONE (08:13)
[2017-09-12] MEDS ORDERED: ACETAMINOPHEN 325 MG TAB PO PRN (08:13)
[2017-09-12] MEDS ORDERED: ASPIRIN EC 325 MG TAB PO ONE (08:13)
[2017-09-12] MEDS ORDERED: NITROGLYCERIN 0.4 MG BTL SL PRN (08:13)
[2017-09-12] MEDS ORDERED: FAMOTIDINE 20 MG TAB PO ONE (08:13)
[2017-09-12] MEDS ORDERED: NS 1,000 ML IV SCH (08:13)
--- NOTE | 2017-09-12 08:33 | CPEKG ---
Heart Rate: 77 RR Interval: 779 P-R Interval: 160 QRSD Interval: 102 QT Interval: 412 QTC Interval: 467 P [place]: 71 QRS [place]: -54 T Wave [place]: 106 EKG Severity - ABNORMAL ECG - EKG Impression: SINUS RHYTHM EKG Impression: LEFT ANTERIOR FASCICULAR BLOCK EKG Impression: NONSPECIFIC REPOL ABNORMALITY, DIFFUSE LEADS EKG Impression: borderline prolonged Q-T interval Electronically Signed By: Augustus Mcclelland 12-Sep-2017 11:53:29
[2017-09-12] MEDS ORDERED: LIDOCAINE 1% 300 MG/30 ML SDV ONE (09:12)
[2017-09-12] MEDS ORDERED: IOPAMIDOL (ISOVUE-370) 150 ML BTL IV ONE (09:13)
[2017-09-12] MEDS ORDERED: MIDAZOLAM 2 MG/2 ML VIAL ONE (09:13)
[2017-09-12] MEDS ORDERED: fentaNYL 100 MCG/2 ML INJ ONE (09:13)
--- NOTE | 2017-09-12 09:38 | PDHPUP ---
History & Physical Update H&P update statement: This history and physical update is based on an assessment of the patient which was completed after admission or registration (within 24 hours), but prior to the surgery/procedure. H&P update: H&P reviewed & patient examined, no change in patient's condition since H&P completed
--- NOTE | 2017-09-12 09:38 | PDPROPOC ---
Sedation Plan of Care Sedation Plan of Care: vital signs stable, mental status noted, patient educated of risks, benefits, alternatives, patient can tolerate sedation ASA Classification: ASA 2 Planned drugs: fentanyl, midazolam Mallampati Score: Class 1 Mallampati Reference Image: Patient passed 3-3-2 rule?: Yes
[2017-09-12] MEDS ORDERED: ONDANSETRON 4 MG/2 ML VIAL IVP PRN (10:50)
[2017-09-12] MEDS ORDERED: ATROPINE SULFATE 1 MG/10 ML SYR IVP PRN (10:50)
[2017-09-12] MEDS ORDERED: HYDROCODONE/APAP 5/325 TAB PO PRN (10:50)
--- NOTE | 2017-09-12 11:10 | PDDXCAT ---
Diagnostic Cath Note - . 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 LAD: Diffuse mid-LAD irregularities up to 30-40%. LCX: Dominant; minimal irregularities. RCA: Non-dominant; normal. EDP: 9 mmHg LVEF: 20% Wall motion: Global hypokinesis. - Findings-Right Heart Catheterization RA: 4 mmHg (CVP 1 mmHg) RV: 29/3 mmHg PA: 31/4/16 mmHg O2 sat 82.5% PAOP: 7 mmHg AO: 120/56/75 mmHg O2 sat 99.1% Complications: None Estimated blood loss: <50ml Closure method: Angioseal Assessment: 1) Nonischemic cardiomyopathy. 2) Biv-sbfc-jezwytci coronary atherosclerosis. 3) Normal right heart pressures. Patient Problems: Problems Problem Status Onset Acute decompensated heart failure Acute chronic disease mgmt/transitional care Acute
[2017-09-13] MEDS ORDERED: ATORVASTATIN CALCIUM 40 MG TAB PO SCH (09:00)
== END 2017-09-12 15:00 | disposition home or self-care (01) ==
LOC: FLAB 08:11 → FCATH 15:00
PROVIDERS: ATTEND Internal Medicine Interventional Cardiology
PROC: B2111ZZ Fluoroscopy of Multiple Coronary Arteries using Low Osmolar Contrast (ICD-10-PCS; principal; 2017-09-12)
PROC: 4A023N8 Measurement of Cardiac Sampling and Pressure, Bilateral, Percutaneous Approach (ICD-10-PCS; principal; 2017-09-12)
PROC: B2151ZZ Fluoroscopy of Left Heart using Low Osmolar Contrast (ICD-10-PCS; principal; 2017-09-12)
DX: I42.9 Cardiomyopathy, unspecified (principal); I50.22 Chronic systolic (congestive) heart failure; I25.10 Atherosclerotic heart disease of native coronary artery without angina pectoris; I44.4 Left anterior fascicular block; R06.02 Shortness of breath; R53.83 Other fatigue; F41.9 Anxiety disorder, unspecified
CPT/HCPCS: C1760; J1644; J2250; J3010; Q9967

== ENCOUNTER → 2018-01-19 | Outpatient (CLI) | payer OTHER | LOC: BHCLAF 09:15 | PROVIDERS: ATTEND Internal Medicine Interventional Cardiology | DX: I50.9 Heart failure, unspecified (principal) | CPT/HCPCS: 93306-PO ==

== ENCOUNTER → 2018-12-12 | Outpatient (CLI) | payer OTHER | LOC: BHFA 14:00 | PROVIDERS: ATTEND Internal Medicine Cardiovascular Disease | DX: I50.9 Heart failure, unspecified (principal) ==